=== PATIENT | male | born 1990 | race Caucasian/White ===

== ENCOUNTER 2017-06-08 21:23 | Emergency (ER) | payer OTHER ==
[~2017-06-08] VITALS: Ht 180.3 cm; Wt 134.9 kg
[~2017-06-08 21:23] MED LIST: ADDERALL20 MG PO; ALBUTEROL SULF8.5 GM IH; MOTRIN600 MG PO; PREDNISONE20 MG PO
[2017-06-08] MEDS ORDERED: ULTRAM50 MG PO (22:08)
[2017-06-08] MEDS ORDERED: CLEOCIN300 MG PO (22:08)
[2017-06-08 22:19] VITALS: BP 180/103
== END 2017-06-08 22:20 | disposition home or self-care (01) ==
LOC: EME 21:23
DX: K08.89 Other specified disorders of teeth and supporting structures (principal); F17.200 Nicotine dependence, unspecified, uncomplicated
CPT/HCPCS: 99281; 99283